=== PATIENT | female | born 1955 ===

== ENCOUNTER 2017-03-30 14:17 | Emergency (ER) | payer SELFPAY ==
[2017-03-30 14:47] VITALS: BP 141/66; PULSE 72; RESP 20; TEMP 98.1; O2SAT 100; BMI 21.6
--- NOTE | 2017-03-30 15:26 | ED PDOC ---
Lower Extremity Pain/Injury Time Seen by Provider: 03/30/17 15:05 Chief Complaint (Nursing): Lower Extremity Problem/Injury Chief Complaint (Provider): Right Lower Leg Pain History Per: Patient History/Exam Limitations: no limitations Onset/Duration Of Symptoms: Days (x2 wks) Additional Complaint(s): Sabrina Cherry is a 62 year old female that presents to the ED with a chief complaint of a cramping sensation in her right lower leg behind her knee that she has been experiencing for the past two weeks. Patient describes the sensation as pulsing. Past Medical History Reviewed: Historical Data, Nursing Documentation, Vital Signs Vital Signs: Last Vital Signs Temp 98.1 F 03/30/17 14:47 Pulse 72 03/30/17 14:47 Resp 20 03/30/17 14:47 BP 141/66 03/30/17 14:47 Pulse Ox 100 03/30/17 14:47 - Medical History PMH: Arthritis - Family History Family History: States: Unknown Family Hx - Home Medications Home Medications: Ambulatory Orders Medication Instructions Recorded Naproxen 1 tab PO Q12 PRN #14 tab 03/30/17 - Allergies Allergies/Adverse Reactions: Allergies Allergy/AdvReac Type Severity Reaction Status Date / Time No Known Allergies Allergy Verified 03/30/17 15:04 Review of Systems Musculoskeletal: Positive for: Leg Pain (right lower leg cramping pain, behind knee) Physical Exam - Reviewed Nursing Documentation Reviewed: Yes Vital Signs Reviewed: Yes - Physical Exam Appears: Positive for: Non-toxic, No Acute Distress Head Exam: Positive for: ATRAUMATIC, NORMOCEPHALIC Skin: Positive for: Normal Color, Warm Eye Exam: Positive for: Normal appearance, EOMI, PERRL Pulses-Dorsalis Pedis (L): 2+ Pulses-Dorsalis Pedis (R): 2+ Pulses-Post. Tibialis (L): 2+ Pulses-Post. Tibialis (R): 2+ Extremity: Positive for: Normal ROM. Negative for: Tenderness, Pedal Edema, Calf Tenderness, Deformity, Other (Negative Cyndee's sign, negative erythema) Neurologic/Psych: Positive for: Alert, Oriented. Negative for: Motor/Sensory Deficits - Laboratory Results Result Diagrams: 03/30/17 15:34 - ECG O2 Sat by Pulse Oximetry: 100 (RA) Pulse Ox Interpretation: Normal Medical Decision Making Medical Decision Making: Impression: DVT Plan: * US Duplex Right Lower Extremity Vein * CMP * Reevaluation US Duplex Right Lower Extremity Vein FINDINGS: COMMON FEMORAL VEIN: Unremarkable. SUPERFICIAL FEMORAL VEIN: Unremarkable. POPLITEAL VEIN: Unremarkable. POSTERIOR TIBIAL VEIN: Unremarkable. OTHER FINDINGS: None. IMPRESSION: No evidence of deep venous thrombosis in the right lower extremity. 18:14 Patient given Rx for Naproxen and advised to follow up with PMD. Stable for discharge home. Clinical Impression: Popliteal Cyst Scribe Attestation: Documented by Lizbeth Jolly, acting as a scribe for Danya Rodriguez PA-C. Provider Scribe Attestation: All medical record entries made by the Scribe were at my direction and personally dictated by me. I have reviewed the chart and agree that the record accurately reflects my personal performance of the history, physical exam, medical decision making, and the department course for this patient. I have also personally directed, reviewed, and agree with the discharge instructions and disposition. Disposition - Clinical Impression Clinical Impression: Popliteal cyst - Patient ED Disposition Is Patient to be Admitted: No - Disposition Referrals: Marlen Hammond MD [Staff Provider] - Disposition: Routine/Home Disposition Time: 18:14 Condition: FAIR Prescriptions: Naproxen 1 tab PO Q12 PRN #14 tab PRN Reason: Pain, Moderate (4-7) Instructions: Estrella's Cyst (ED) Forms: [facility] (Thai) Print Language: DANISH
[2017-03-30 16:05] LABS: ALB/GLOB RATIO 1.4 (1.0-2.1); ALKALINE PHOSPHATASE 115 U/L (38-126); ALT/SGPT 38 U/L (9-52); AST/SGOT 33 U/L (14-36); BILIRUBIN,TOTAL 0.4 mg/dl (0.2-1.3); BLOOD UREA NITROGEN 18 mg/dl (7-17); CALCIUM 9.4 mg/dL (8.4-10.2); CARBON DIOXIDE 25 mmol/L (22-30); CHLORIDE 107 mmol/L (98-107); GFR AFRICAN-AMERICAN > 60; GLUCOSE,RANDOM 103 mg/dL (65-105); POTASSIUM 4.2 MMOL/L (3.6-5.0); SODIUM 140 mmol/l (132-148); TOTAL PROTEIN 7.3 G/DL (6.3-8.2)
--- NOTE | 2017-03-30 18:16 | US ---
PROCEDURE: Right lower extremity venous duplex Doppler. HISTORY: r/o dvt COMPARISON: None available. TECHNIQUE: Common femoral, superficial femoral, popliteal and posterior tibial veins were evaluated. Flow was assessed with color Doppler, compressibility, assessment of phasic flow and augmentation response. FINDINGS: COMMON FEMORAL VEIN: Unremarkable. SUPERFICIAL FEMORAL VEIN: Unremarkable. POPLITEAL VEIN: Unremarkable. POSTERIOR TIBIAL VEIN: Unremarkable. OTHER FINDINGS: None. IMPRESSION: No evidence of deep venous thrombosis in the right lower extremity.
== END 2017-03-30 18:47 | disposition home or self-care (01) ==
LOC: H.ER 14:17
DX: M71.21 Synovial cyst of popliteal space [Baker], right knee (principal)